=== PATIENT | female | born 1965 | race Caucasian/White ===

== ENCOUNTER → 2016-09-14 | Day surgery (SDC) | payer BC ==
[~2016-09-14] MED LIST: DICYCLOMINE HCL20 MG PO; NEXIUM PO; PAXIL PO; SYNTHROID PO; SYNTHROID125 PO; VICODIN 5/500 T1 TAB PO
--- NOTE | ~2016-09-14 | OR ---
Unit #: [id number] #: [id number] Patient: LACIE ZAYAS [id number] [address] [place], [place] [address] [id number] MR#: [id number] NAME: LACIE ZAYAS ROOM: Date of Procedure: 09/14/2016 Admission Date: 09/14/2016 Surgeon: Jose Armando Bob M.D. : 1965 Attending Physician: Jose Armando Bob M.D. Primary Care Physician: Manuel Riley M.D. OPERATIVE REPORT PREOPERATIVE DIAGNOSES The patient has presented with history of abdominal pain. She feels intermittent sharp twinging intense pain in the lower abdomen particularly in the right lower quadrant of the abdomen. She gets occasional dyspeptic symptoms. The symptoms started after her appendectomy in 01/2016, but over the past 4 to 6 weeks, had become much more intense and frequent. Incidentally, a CT scan of the abdomen done recently was unremarkable. There was however some questionable thickening of the terminal ileum. PROCEDURES PERFORMED Upper gastrointestinal endoscopy and biopsy as well as colonoscopy up to cecum and terminal ileum. POSTOPERATIVE DIAGNOSES For upper endoscopy: 1. Mild prepyloric antral gastritis. This was in the form of focal mild erythema in the antral area. There being no erosions or ulcers. A biopsy was obtained from the antrum for CLOtest. 2. Rest of the examination up to third part of duodenum was normal. For colonoscopy: Completely normal examination up to cecum and terminal ileum. Several inches of the terminal ileum were intubated and appeared completely normal. The entire colonic mucosa was normal with excellent preparation and good visualization. No polyps, diverticula, or hemorrhoids were seen. The patient does not have any gastrointestinal cause for her abdominal pain. Instantly, shortly after the examination today, while the patient was sedated, pelvic bimanual examination was also performed and did not reveal any masses or abnormality on examination. RECOMMENDATIONS Etiology of the patient's symptomatology is unclear. It is possible that this is caused by pain arising from the parietal wall or musculoskeletal pain. In any event, the patient says she got lot of central nervous systems side effects from Bentyl. After detailed discussion with the patient, I advised her to use low-dose of amitriptyline as this is known to modulate pain perception and threshold; however, we will re-evaluate the patient in 2 to 3 weeks' time in the office. Considerable time was spent with both the patient and regarding the fact that all her evaluation so far has been normal. SEDATION USED Unit #: [id number] #: [id number] Patient: LACIE ZAYAS. DESCRIPTION OF PROCEDURE Following detailed explanation of the potential risks and complications of an upper endoscopy and a colonoscopy, namely perforation, bleeding, and complication related to sedation, the patient was brought to GI lab and laid in the left lateral decubitus position. Lubricated tip of the Olympus video upper endoscope was passed through the bite block into the proximal esophagus under direct vision. The entire esophageal mucosa was examined and appeared normal. Z-line was nicely demarcated, there being no esophagitis or hiatus hernia. The scope was then advanced into the gastric cavity and the latter was insufflated. Mucosa of the fundus, body, and antrum was examined. Mild prepyloric antral erythema was noted indicating antral gastritis. Pylorus was intubated with visualization of normal duodenal bulb and second and third part of the duodenum. Upon withdrawal and retroflexion; incisura, cardia, and greater curve was examined and biopsy was obtained from the antrum for CLOtest. The scope was then withdrawn in the distal esophagus. The entire esophageal mucosa was examined all the way up to pharynx and no additional findings were noted. The examination table was then turned by 180 degrees and the patient positioned for a colonoscopy. A digital rectal examination was performed, which was normal. Lubricated tip of the Olympus video colonoscope was inserted through the anus and advanced under direct vision. The scope was advanced past rectosigmoid into descending colon. No diverticula were noted in this area. The scope tip was then navigated all the way up to cecum with visualization of the ileocecal valve and the appendiceal orifice. Preparation was excellent with good visualization and photodocumentation was obtained. Last several inches of the terminal ileum were also visualized after intubation of the ileocecal valve and appeared normal. Successive segments of the colonic mucosa were examined upon withdrawal and appeared unremarkable. There being no polyps, mass lesions, AVMs, or diverticula. The patient did not have any internal hemorrhoids at anal verge. The scope was then withdrawn and the patient returned to recovery area. She tolerated the procedure without any postprocedure complications. Dictated by... Mary Allen TD: 09/15/2016 19:49 JOB #: [id number] OPERATIVE REPORT Page 1 of 1 X Jose Armando Bob MD X PROCEDURE OPERATIVE NOTE
== END | disposition home or self-care (01) ==
LOC: COPS 12:43
DX: K29.70 Gastritis, unspecified, without bleeding (principal); K58.9 Irritable bowel syndrome, unspecified; E03.9 Hypothyroidism, unspecified; Z87.891 Personal history of nicotine dependence; Z90.710 Acquired absence of both cervix and uterus; Z98.890 Other specified postprocedural states; Z79.899 Other long term (current) drug therapy
CPT/HCPCS: 87077; J2250